=== PATIENT | male | born 1960 | race Caucasian/White ===

== ENCOUNTER → 2024-08-08 | Outpatient (CLI) | payer OTHER ==
--- NOTE | 2024-08-08 14:11 | XR ---
EXAMINATION TYPE: XR lumbosacral spine min 4V DATE OF EXAM: 08/08/2024 1:26 PM COMPARISON: None CLINICAL INDICATION: Male, 64 years old with history of [id number] LBP,MYALGIA; [facility] TECHNIQUE: XR lumbosacral spine min 4V - Frontal, lateral , bilateral oblique and coned in L5-S1 late ral views of the spine. FINDINGS: No evidence of any acute osseous pathology. No evidence of loss of vertebral body height i s seen. There is normal alignment of the lumbar vertebral bodies. Mild scattered disc space narrowing . Multilevel marginal osteophyte formation throughout the visualized spine. There is facet joint arth ropathy throughout the spine worse at L4-L5 and S1. Scattered at least mild neural foraminal stenosis . IMPRESSION: 1. No acute fracture. 2. Moderate to severe facet joint arthropathy in the lower lumbar spine. Multilevel disc degeneration . 3. A Grade 1 anterolisthesis of L5 on S1 is suggested. [facility], , 08/08/2024 2:08 PM
== END | disposition home or self-care (01) ==
LOC: RADXRYALE 13:13
PROVIDERS: ATTEND Physician Assistant
DX: M51.360 Other intervertebral disc degeneration, lumbar region with discogenic back pain only (principal); M99.73 Connective tissue and disc stenosis of intervertebral foramina of lumbar region; M47.819 Spondylosis without myelopathy or radiculopathy, site unspecified
CPT/HCPCS: 72110

== ENCOUNTER → 2025-03-23 | Outpatient (CLI) | payer MEDICARE ==
--- NOTE | 2025-03-23 10:58 | MR ---
EXAMINATION TYPE: MR Prostate wo/w con DATE OF EXAM: 03/23/2025 10:20 AM COMPARISON: None. CLINICAL INDICATION: Male, 65 years old with history of R97.20 ELEVATED PSA; Elevated PSA. TECHNIQUE: Multi-planar, multi-sequence imaging of the pelvis is performed prior to and following the uncomplicated administration of bolus intravenous gadolinium. IV Contrast: 13 mL Gadobutrol Interpretive Criteria: PI-RADS v2.1 SERUM PSA: 02-19-25 = 7.69 12-21-24 = 5.4 02-06-24 = 3.02 SURGICAL PATHOLOGY: No data available. FINDINGS: Prostatic dimensions: 6.3 x 7.3 x 5.1 cm. Ellipsoid Volume:122.81 (PSA density=0.06 ng/mL/mL) CENTRAL GLAND (Central and Transition Zones/CZ+TZ): High DWI and low ADC signal area in the left anterior central gland mid gland measuring 12 x 9 mm (PI -RADS 4) PERIPHERAL ZONE (PZ): Bilateral linear, indistinct wedgelike areas of low ADC, and low T2 signal, No evidence of masslike a bnormality, or localized perfusional hypervascularity, to further suggest a focus of clinically signi ficant prostate cancer. (PI-RADS 2) SEMINAL VESICLES (SV): Symmetric and unremarkable. PERIPROSTATIC TISSUES: Unremarkable. LYMPH NODES: No enlarged pelvic lymph node. REMAINING PELVIS: Bladder wall is within normal limits given distention. No abnormal free or organized intrapelvic fluid collection. No pathologic bowel dilation or mural thickening. Colonic diverticula are present. No hernia visualized OSSEOUS STRUCTURES: No suspicious osseous abnormality. IMPRESSION: 1. PI-RADS 4 Lesion in the central zone, mid gland measuring 12 x 9 mm. 2. Moderate BPH, estimated gland volume 122.81 (PSA density=0.06 ng/mL/mL 3. No suspicious osseous lesion. No lymphadenopathy. No evidence of prostate adenocarcinoma involving the periprostatic tissues. [facility], , 03/23/2025 10:55 AM
== END | disposition home or self-care (01) ==
LOC: RADMRIMAIN 09:00
PROVIDERS: ATTEND Urology
DX: N40.0 Benign prostatic hyperplasia without lower urinary tract symptoms (principal); R97.20 Elevated prostate specific antigen [PSA]
CPT/HCPCS: 72197; A9585

== ENCOUNTER → 2025-04-02 | Outpatient (CLI) | payer MEDICARE ==
[2025-04-02 15:12] LABS: Basophils # (A) 0.04 X 10*3/uL (0.00-0.10); Basophils % (A) 0.5 %; Eosinophils # (A) 0.11 X 10*3/uL (0.04-0.35); Eosinophils % (A) 1.3 %; HCT 43.4 % (39.6-50.0); HGB 14.2 g/dL (13.0-17.0); Immature Grans, Automated 0.40 %; Lymphocytes # (A) 1.85 X 10*3/uL (0.90-5.00); Lymphocytes % (A) 21.8 %; MCH 30.3 pg (27.0-32.0); MCHC 32.7 g/dL (32.0-37.0); MCV 92.7 FL (80.0-97.0); Monocytes # (A) 0.68 X 10*3/uL (0.20-1.00); Monocytes % (A) 8.0 %; NRBC Per 100 WBC 0 X 10*3/uL (0.00-0.01); Neutrophils # (A) 5.77 X 10*3/uL (1.80-7.70); Neutrophils % (A) 68.0 %; Platelet Count 258 X 10*3/uL (140-440); RBC 4.68 X 10*6/uL (4.40-5.60); RDW 13.3 % (11.5-14.5); WBC 8.48 X 10*3/uL (4.50-10.00)
[2025-04-02 15:31] LABS: Anion Gap 11.20 mmol/L (4.00-12.00); BUN/Creat Ratio 11.14 Ratio (12.00-20.00); Blood Urea Nitrogen 15.6 mg/dL (9.0-27.0); Calcium 9.8 mg/dL (8.7-10.3); Carbon Dioxide 27.8 mmol/L (21.6-31.8); Chloride 101 mmol/L (96-109); Glucose 121 mg/dL (70-110); Potassium 4.1 mmol/L (3.5-5.5); Sodium 140 mmol/L (135-145)
== END | disposition home or self-care (01) ==
LOC: LABPAT 08:51
PROVIDERS: ATTEND Urology
DX: Z01.812 Encounter for preprocedural laboratory examination (principal); R97.20 Elevated prostate specific antigen [PSA]
CPT/HCPCS: 80048; 85025

== ENCOUNTER 2025-04-08 07:55 | Day surgery (SDC) | payer MEDICARE, OTHER ==
--- NOTE | 2025-04-08 07:31 | P.HPIHPCON ---
History of Present Illness H&P Date: 04/08/25 Chief Complaint: Elevated PSA This is a 65-year-old male with history of elevated PSA 7.69. Known prostate MRI which showed evidence of a PI-RADS 4 lesion along the central mid gland. Discussed with him and his daughter given this finding I do recommend proceeding with an MRI fusion biopsy of the prostate. They are aware of the risk which include but not limited to bleeding, infection. He he understood all the risk and agreed to proceed Consent for Procedure: I have explained the operation/procedure to the patient, including the risks, benefits, side effects, alternative therapies (including not receiving the proposed treatment or service), the likelihood of the patient achieving his/her goals, and potential recuperation problems for the procedure/sedation/analgesia, as well as any blood products, if indicated. I also explained to the patient the risks, benefits and side effects of the alternatives, as well as the risks related to not receiving the proposed procedure, care, treatment, or services. Past Medical History Past Medical History: CVA/TIA, Hypertension, Osteoarthritis (OA), Prostate Disorder, Vascular Disorder Additional Past Medical History / Comment(s): PSA elevated, hx. kidney stones, couple TIA's-no residual effects, back pain, SOB w/exertion-uses nebulizer occasionally History of Any Multi-Drug Resistant Organisms: None Reported Additional Past Surgical History / Comment(s): procedure to improve circulation on right leg-not a stent per daughter Additional Past Anesthesia/Blood Transfusion Reaction / Comment(s): has never had anesthesia per daughter, no family problems she is aware of Smoking Status: Never smoker Medications and Allergies Home Medications Medication Instructions Recorded Confirmed Type Acetaminophen [Tylenol Extra 500 mg PO DIRECTED PRN 04/07/25 04/07/25 History Strength] Albuterol Nebulized [Ventolin 2.5 mg INHALATION DIRECTED PRN 04/07/25 04/07/25 History Nebulized] DULoxetine HCL [Cymbalta] 60 mg PO BID 04/07/25 04/07/25 History HYDROcodone/APAP 5-325MG [[place] 1 tab PO Q8H PRN 04/07/25 04/07/25 History 5-325] Losartan Potassium 50 mg PO BID 04/07/25 04/07/25 History Meloxicam [Mobic] 7.5 mg PO DAILY 04/07/25 04/07/25 History Tamsulosin [Flomax] 0.4 mg PO DAILY 04/07/25 04/07/25 History buPROPion XL [Wellbutrin XL] 300 mg PO DAILY 04/07/25 04/07/25 History hydroCHLOROthiazide [Hydrodiuril] 25 mg PO DAILY 04/07/25 04/07/25 History Allergies Allergy/AdvReac Type Severity Reaction Status Date / Time No Known Allergies Allergy Verified 04/07/25 12:02 Surgical - Exam - General no distress, no pain - Eyes normal ocular movement, no pale - Respiratory normal expansion, normal respiratory effort - Abdomen Abdomen: soft, non tender Assessment and Plan Assessment: OR for MRI fusion biopsy of the prostate
[2025-04-08] MEDS: IV FLUID CONTINUATION 1,000 ML IV ONE (08:20)
[2025-04-08 08:37] VITALS: TEMP 97
[2025-04-08] MEDS: ONDANSETRON 4 MG/2 ML VIAL IVP STA (08:58)
[2025-04-08] MEDS: MIDAZOLAM 2 MG/2 ML VIAL IV ONE (08:59)
[2025-04-08] MEDS: LACTATED RINGERS 1,000 ML IV SCH (09:02)
[2025-04-08] MEDS: GENTAMICIN 40 MG/ML 2 ML VIAL IM PRN (09:10)
[2025-04-08] MEDS ORDERED: LIDOCAINE 1% INJ 10MG/ML (20 ML MDV) ONE (09:49)
[2025-04-08] MEDS ORDERED: PROPOFOL 10 MG/ML 20 ML VIAL IV ONE (09:49)
[2025-04-08] MEDS ORDERED: KETAMINE HCL IN 0.9 % NACL 50 MG/5 ML SYRINGE ONE (09:49)
[2025-04-08 10:30] VITALS: BP 117/64; PULSE 81; RESP 18
--- NOTE | 2025-04-08 11:07 | P.OP ---
Date of Procedure: 04/08/25 Preoperative Diagnosis: Elevated PSA Postoperative Diagnosis: Same Procedure(s) Performed: MRI fusion biopsy of the prostate Anesthesia: MAC Surgeon: Maxwell Montero Estimated Blood Loss (ml): 1 Pathology: other (Prostate biopsy) Condition: stable Disposition: PACU Indications for Procedure: This is a 65-year-old male with history of elevated PSA 7.69. Known prostate MRI which showed evidence of a PI-RADS 4 lesion along the central mid gland. Discussed with him and his daughter given this finding I do recommend proceeding with an MRI fusion biopsy of the prostate. They are aware of the risk which include but not limited to bleeding, infection. He he understood all the risk and agreed to procee Description of Procedure: The patient was taken to the operating room and placed in the left lateral decubitus position. The [employer] transrectal ultrasound probe was placed intrarectally. It was then placed within the stand of the [employer] MRI/TRUS Fusion for Prostate Biopsy system. The prostate was imaged in both the axial and sagittal planes,L. Using the Biopsy gun, 4 biopsies were obtained from the target lesion, there were was one lesions, . The remaining 12 biopsies of the peripheral zone were obtained utilizing a standard template. Once the procedure was completed, the ultrasound probe was removed. The patient tolerated the procedure well was taken to the recovery room stable condition
== END 2025-04-08 10:45 | disposition home or self-care (01) ==
LOC: OR 07:55
PROVIDERS: ATTEND Urology
DX: N42.31 Prostatic intraepithelial neoplasia (principal); I10 Essential (primary) hypertension; M19.90 Unspecified osteoarthritis, unspecified site; G47.33 Obstructive sleep apnea (adult) (pediatric); E66.01 Morbid (severe) obesity due to excess calories; Z79.1 Long term (current) use of non-steroidal anti-inflammatories (NSAID); Z86.73 Personal history of transient ischemic attack (TIA), and cerebral infarction without residual deficits; Z79.899 Other long term (current) drug therapy
CPT/HCPCS: 55700; 88344; 88305; J2250; J1580; J2405; J2003; J2704